=== PATIENT | male | born 1965 | race Caucasian/White ===

== ENCOUNTER → 2021-01-05 12:08 | Outpatient (BNVA) | payer MEDICAID, SELFPAY | PROVIDERS: PCP Nurse Practitioner Family; Visit Provider Nurse Practitioner Family | DX: J44.9 Chronic obstructive pulmonary disease, unspecified (principal); L03.90 Cellulitis, unspecified | CPT/HCPCS: 87070; 87077; 87184 ==

== ENCOUNTER → 2021-06-22 10:06 | Outpatient (BNVA) | payer MEDICAID, SELFPAY | PROVIDERS: PCP Nurse Practitioner Family; Visit Provider Nurse Practitioner Family | DX: Z98.890 Other specified postprocedural states (principal); Z79.899 Other long term (current) drug therapy; R53.83 Other fatigue; J44.9 Chronic obstructive pulmonary disease, unspecified; Z12.5 Encounter for screening for malignant neoplasm of prostate; E55.9 Vitamin D deficiency, unspecified; R06.02 Shortness of breath; S82.832S Other fracture of upper and lower end of left fibula, sequela; X58.XXXS Exposure to other specified factors, sequela | CPT/HCPCS: 71046; 73610 ==

== ENCOUNTER → 2021-08-14 00:01 | Outpatient (BNVA) | payer MEDICAID, SELFPAY | PROVIDERS: PCP Nurse Practitioner Family; Referring Provider Nurse Practitioner Family; Visit Provider Podiatrist Foot & Ankle Surgery | DX: M25.579 Pain in unspecified ankle and joints of unspecified foot (principal); Z20.822 Contact with and (suspected) exposure to COVID-19 | CPT/HCPCS: 87635 ==

== ENCOUNTER 2021-08-17 05:54 | Day surgery (SDC) | payer MEDICAID, SELFPAY ==
[2021-08-16 12:26] VITALS: BMI 29.5
--- NOTE | 2021-08-17 | SCC_ITS ---
Procedure Done: Hardware removal and resection of nonunion with open reduction internal fixation left medial malleolus 3 seconds of fluoroscopic guidance, for a cumulative dose of 0.1 mGy, was provided to Dr. Lima by the radiology department. C-arm images of the LEFT ankle were saved for the patient's permanent record. [facility] CENTERStormy
[2021-08-17 06:20] VITALS: BP 126/79; PULSE 70; RESP 18; TEMP 37.1; O2SAT 97
[2021-08-17] MEDS: sodium chloride 0.9% 1,000 ML 30 ML IV (06:30)
--- NOTE | 2021-08-17 06:39 | W.PM.OPSUD ---
Surgery/Procedure H&P Update DATE OF PROCEDURE: August 17, 2021 DATE H&P PERFORMED: 08/14/21 H&P UPDATE INFORMATION: I have reviewed H&P completed within last 30 days, I have examined patient prior to procedure, No changes to prior documentation and H&P is in [facility] [place] EMR on date indicated PREOP DIAGNOSIS: Painful hardware and nonunion left ankle PLANNED PROCEDURE: Operation Date: 08/17/21 07:00 Proposed Procedures p Hardware Removal [id number] T84.84XA(Left) - Darrell Lima DPM s ORIF Ankle(Left) - Darrell Lima DPM
--- NOTE | 2021-08-17 06:54 | PC.NURSE ---
nerve block done left lower leg by Dr. Rosen
--- NOTE | 2021-08-17 06:55 | ANES.PREANE2 ---
Pre-Anesthetic Assessment Pre-Anesthetic Assessment: Height/Weight: Height 1.88 m Weight 104.326 kg Temp Pulse Resp BP Pulse Ox 98.7 F 70 18 126/79 97 08/17/21 06:20 08/17/21 06:20 08/17/21 06:20 08/17/21 06:20 08/17/21 06:20 Preop Diagnosis: Painful hardware and nonunion left ankle Proposed Procedure: Operation Date: 08/17/21 07:00 Proposed Procedures p Hardware Removal [id number] T84.84XA(Left) - Darrell Lima DPM s ORIF Ankle(Left) - Darrell Lima DPM Familial anesthetic complications: none Was Beta Tameka taken within 24 hours: N/A Was Clonidine taken within 24 hours: N/A Last intake: Intake Last Liquid Date 08/16/21 Last Liquid Time 18:00 Last Solid Date 08/16/21 Last Solid Time 18:00 Social: Social History: No alcohol and No tobacco Exam: Pre-Anes Outpt Exam: alert, oriented x 3, clear to auscultation bilaterally and regular rate & rhythm Airway: Cervical ROM: WNL MP: 2 Dentition: Other (multiple missing, only 3 teeth) Pulmonary: Pulmonary: COPD CV/HEM: CV/HEM: HTN Anesthetic Plan: ASA status: 2 Anesthesia: General and Regional (specify below) Risk of > 500 ml blood loss (7ml/kg in children): No PFSH Anesthesia PFSH: Medical History COPD (chronic obstructive pulmonary disease) Crushing injury of ankle 1997 - logging accident Fatigue Hypertension screen Medication management Prostate cancer screening Vitamin D deficiency Surgical History History of ankle surgery Left ankle crush injury 1997 Plates and screws - bilateral Social History Smoking and tobacco status: former smoker Second hand smoke exposure: No Smoking risk assessment/counseling performed?: No Alcohol intake: former Desire information about alcohol rehabilitation?: No Counseling given: No Data Anesthesia Cardiac Studies: No Data to Display
--- NOTE | 2021-08-17 06:56 | ANES.PROC ---
Anesthesia Procedures Procedure/Date: 08/17/21 Nerve Block ^: Nerve Block 1: Main Anesthesia: general anesthesia Time Out Performed: Yes Consent: requested by attending/covering physician, from patient, risks and benefits reviewed and patient agrees to proceed Nerve block location: popliteal (L) Anesthesia monitors applied: pulse oximetry, EKG, BP cuff and oxygen Nerve block position: supine Anesthetic Used: ropivicaine 0.5% and with decadron (4 mg) Amount of anesthesia used (mL): 30 Ultrasound used to: recognize landmarks Nerve Stimulator Used?: No Interscalene/Femoral BLK: 4 stimuplex 21 g needle used for position and inplane approach, visualize local anesthetic spread and no vascular puncture identified Injection: neg aspiration of heme Patient Tolerated Procedure: well and no complications Complications: none
--- NOTE | 2021-08-17 08:00 | XR_ITS ---
WS: [id number] XR ankle LT min 3V* [id number] REASON FOR EXAM: Post op FINDINGS: Oblique distal most left medial malleolar fracture with long screw fixation. There are findings of he aling however the fracture lines are still identifiable. Previous distal right fibular fracture post hardware removal. Fracture site is healed. There may be f usion of the tibiofibular syndesmosis. There is narrowing of the lateral tibiotalar talar joint with significant subchondral sclerosis and c ystic change in the subarticular tibia. No significant interval change compared to 06/22/2021. XR/XR ankle LT min 3V* [id number] IMPRESSION: Stable examination compared to 06/22/2021. Old healed left fibular fracture. More recent left medial malleolar fracture with fixation. 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
[2021-08-17 08:21] VITALS: BP 97/72; PULSE 67; RESP 18; TEMP 36.1; O2SAT 94
--- NOTE | 2021-08-17 08:22 | P.OP_ITS ---
Operative Report Date of procedure: August 17, 2021 Pre-op Diagnosis: Painful hardware and nonunion left ankle Post-op diagnosis: same Post-op Findings: Nonunion left medial malleolus. Procedure Done: Hardware removal and resection of nonunion with open reduction internal fixation left medial malleolus Implants: 4.0 mm partially-threaded screw by 70 mm in length x2 with washers. Also used Estelle bio 4 1 cc Specimens removed/disposition: Screw x2 removed from medial malleolus Pathology: none sent Surgeon: Darrell Lima D.P.M. Control Panel Builder: Naima Brunner Anesthesia: MAC Estimated blood loss: 10 Tourniquet time: 57 IV fluids: 0 Urine output: 0 Complications: none Findings: Nonunion Condition: stable Disposition: PACU Brief History: Patient sustained a ankle fracture in 2008 with ORIF followed by revisional surgery in 2009 developed a painful nonunion with hardware and nonhealed fracture. Has had pain that is persistent with weightbearing and activity. Requesting revisional surgery. Risks include pain, bleeding, numbness, infection, hardware failure, delayed union, nonunion, malunion and need for further surgical intervention. Procedure: Under mild sedation the patient was brought to the operating room and remained on the gurney in supine position. A timeout was performed. Anesthesia was then administered by the anesthesia service. Popliteal block also performed per anesthesia service preoperatively. Saphenous nerve block performed by myself utilizing 0.5% Marcaine plain. Well-padded pneumatic tourniquet applied high calf to the left lower extremity. Left lower extremity was then scrubbed, prepped and draped utilizing normal aseptic technique. It was wrapped with an Esmarch bandage and the tourniquet inflated to 250 mmHg. Attention was directed to the medial ankle where previous cicatrix was identified. Over the previous cicatrix a 15 blade was utilized to perform a linear longitudinal incision through skin with blunt and sharp dissection carried down through subcutaneous tissue with care taken to retract and preserve neurovascular and tendinous structures. All bleeders were ligated and cauterized as necessary. Linear periosteal incision was made and hardware was identified this was removed 2 screws in total and passed from operative field. Fracture line was identified of the medial malleolus and was freshened up and opened up with a osteotome, all fibrous tissue was excised. Saline flush was performed. Subchondral drilling performed followed by packing 1 cc of Estelle bio 4 with osteogenic and conductive properties. Next utilizing standard AO technique [place] 4.0 mm headed partially-threaded screws with washers 70 mm in length were inserted across the fracture site with excellent bony apposition and compression noted with ankle mortise congruent without violating the ankle mortise confirmed on 3 views intraoperative fluoroscopy. Incision was then flu shed with saline solution, temporary fixation was removed. Closed in a layered fashion with periosteum reapproximated with 2-0 Vicryl, subcutaneous tissue reapproximated with 3-0 Vicryl and skin with skin sonam. Incision was dressed with Adaptic, sterile 4 x 4, Kerlix and Brijesh wrap. Extra-large cam boot applied. Tourniquet was deflated and a prompt hyperemic response was noted to the distal digits of the left foot. Patient tolerated the procedure and anesthesia well and was transferred to the PACU with vital signs stable and vascular status intact. Following a period of postoperative monitoring he will be discharged home he is to utilize crutches to remain strict nonweightbearing for a minimum of 6 weeks. Failure to comply with weightbearing status can result in nonunion, failed hardware and need for further surgical intervention. Will send an order for crutches to be filled at [facility]. Strict nonweightbearing to the left lower extremity secondary to status post open reduction internal fixation left ankle fracture.
[2021-08-17 08:26] VITALS: BP 116/73; PULSE 55; RESP 16; O2SAT 95
[2021-08-17 08:31] VITALS: BP 114/76; PULSE 55; RESP 16; O2SAT 99
--- NOTE | 2021-08-17 08:49 | ANE.PACU2 ---
Inpatient post-anesthesia follow up: Airway intact: Yes Vital signs: Temperature 97 F Pulse Rate 55 Respiratory Rate 16 Blood Pressure 114/76 Pulse Oximetry 99 Oxygen Delivery Me thod Room Air Oxygen Flow Rate Fraction of Inspir ed Oxygen Hydration adequate: Yes Nausea and vomiting: No Pain level: 1 Mental status: Baseline
[2021-08-17 08:52] VITALS: BP 124/85; PULSE 52; RESP 18; TEMP 36.6; O2SAT 98
[2021-08-17 09:24] VITALS: BP 106/85; PULSE 50; RESP 18; O2SAT 99
--- NOTE | 2021-08-17 13:14 | ANE.PACU2 ---
Inpatient post-anesthesia follow up: Airway intact: Yes Vital signs: Temperature 98 F Pulse Rate 50 Respiratory Rate 18 Blood Pressure 106/85 Pulse Oximetry 99 Oxygen Delivery Me thod Room Air Oxygen Flow Rate Fraction of Inspir ed Oxygen Hydration adequate: Yes Nausea and vomiting: No Pain level: 2 Mental status: Baseline
== END 2021-08-17 09:29 | disposition home or self-care (01) ==
PROVIDERS: PCP Nurse Practitioner Family; Visit Provider Podiatrist Foot & Ankle Surgery
PROC: (CPT 20680; principal; 2021-08-17 07:00)
PROC: (CPT 20680; 2021-08-17 07:00)
DX: S82.52XD Displaced fracture of medial malleolus of left tibia, subsequent encounter for closed fracture with routine healing (principal); X58.XXXD Exposure to other specified factors, subsequent encounter; T84.84XA Pain due to internal orthopedic prosthetic devices, implants and grafts, initial encounter; J44.9 Chronic obstructive pulmonary disease, unspecified; I10 Essential (primary) hypertension; Z87.891 Personal history of nicotine dependence
CPT/HCPCS: 20680; 27766; 64450; 73610; 76000; 76942; C1713; J0690; J1100; J2405; J2704; J2795; J3010; J3490; J7030

== ENCOUNTER → 2021-08-31 12:50 | Outpatient (BNVA) | payer MEDICAID, SELFPAY | PROVIDERS: PCP Nurse Practitioner Family; Visit Provider Podiatrist Foot & Ankle Surgery | DX: Z98.890 Other specified postprocedural states (principal) | CPT/HCPCS: 73610 ==

== ENCOUNTER → 2021-09-13 14:53 | Outpatient (BNVA) | payer MEDICAID, SELFPAY | PROVIDERS: PCP Nurse Practitioner Family; Visit Provider Podiatrist Foot & Ankle Surgery | DX: S82.55XA Nondisplaced fracture of medial malleolus of left tibia, initial encounter for closed fracture (principal); X58.XXXA Exposure to other specified factors, initial encounter | CPT/HCPCS: 73610 ==

== ENCOUNTER → 2021-10-01 08:13 | Outpatient (BNVA) | payer MEDICAID, SELFPAY | PROVIDERS: PCP Nurse Practitioner Family; Visit Provider Podiatrist Foot & Ankle Surgery | DX: S82.55XD Nondisplaced fracture of medial malleolus of left tibia, subsequent encounter for closed fracture with routine healing (principal); M25.572 Pain in left ankle and joints of left foot; X58.XXXD Exposure to other specified factors, subsequent encounter; Z98.890 Other specified postprocedural states | CPT/HCPCS: 73610 ==

== ENCOUNTER → 2021-10-16 09:31 | Outpatient (BNVA) | payer MEDICAID, SELFPAY | PROVIDERS: PCP Nurse Practitioner Family; Visit Provider Podiatrist Foot & Ankle Surgery | DX: Z47.89 Encounter for other orthopedic aftercare (principal); T84.84XA Pain due to internal orthopedic prosthetic devices, implants and grafts, initial encounter; X58.XXXA Exposure to other specified factors, initial encounter; S82.55XD Nondisplaced fracture of medial malleolus of left tibia, subsequent encounter for closed fracture with routine healing | CPT/HCPCS: 73610 ==

== ENCOUNTER 2021-10-29 06:25 | Outpatient (CLI) | payer MEDICAID, SELFPAY ==
--- NOTE | 2021-10-29 06:30 | USCV_ITS ---
Ahmet Newsome Age: 56 Gender: M : 1965 Exam Date: 10/29/2021 06:44 Ordering Phys: Talha Corley MD Technologist: PHU [place] [facility] [place]: [place]ysp[place] HISTORY: Dyspnea PROCEDURES: Venous duplex imaging was performed in bilateral lower extremities. The following venous structures were evaluated: common femoral vein, profunda vein, proximal portion of the greater saphenous vein, superficial femoral vein, and the popliteal vein. In addition, the posterior tibial and peroneal trunk were evaluated. FINDINGS: Normal 2-D Doppler and augmentation and compressibility throughout the lower extremity venous structures. Additional imaging through the proximal calf veins also reveals no thrombus. Limited evaluation of the greater saphenous vein is patent with no thrombus.. CONCLUSIONS No evidence of right lower extremity DVT. No evidence of left lower extremity DVT. Giovanni Banegas MD (Electronically Signed) Final Date: 29 October 2021 17:15 S
== END 2021-10-29 06:26 | disposition home or self-care (01) ==
LOC: RAD 06:26
PROVIDERS: PCP Nurse Practitioner Family; Visit Provider Internal Medicine Pulmonary Disease
DX: R06.00 Dyspnea, unspecified (principal); J44.9 Chronic obstructive pulmonary disease, unspecified
CPT/HCPCS: 87635; 93970

== ENCOUNTER → 2021-11-19 08:19 | Outpatient (BNVA) | payer MEDICAID, SELFPAY | PROVIDERS: PCP Nurse Practitioner Family; Visit Provider Podiatrist Foot & Ankle Surgery | DX: M19.072 Primary osteoarthritis, left ankle and foot (principal); M25.372 Other instability, left ankle; M25.572 Pain in left ankle and joints of left foot; G89.29 Other chronic pain; Z87.891 Personal history of nicotine dependence; Z98.890 Other specified postprocedural states | CPT/HCPCS: 73610; 99213; 99214 ==

== ENCOUNTER 2021-12-27 14:58 | Outpatient (CLI) | payer MEDICAID, SELFPAY ==
--- NOTE | 2021-12-27 15:04 | CT_ITS ---
WS: [id number] CT CERVICAL SPINE TECHNIQUE: Noncontrast CT of the cervical spine with coronal and sagittal reformatted images. CLINICAL INFORMATION: CERVICAL DDD COMPARISON: None. DLP: 269.[address] scans at [facility] use at least one of these dose optimization techniques: automated e xposure control; mA and/or kV adjustment per patient size (includes targeted exams where dose is matc hed to clinical indication); or iterative reconstruction. FINDINGS: Straightening of the normal cervical lordosis. Moderate spondylitic changes. Disc space narrowing wor se at C4-C5 C5-C6 and C6-C7 with disc osteophytic ridging. Normal C1-C2 articulation. C2-C3: Moderate LEFT facet arthropathy. Mild LEFT foraminal narrowing. Spinal canal is patent. C3-C4: Disc osteophyte complex with endplate ridging. Advanced LEFT facet arthropathy. Severe LEFT ameya ny foraminal narrowing. Mild RIGHT bony foraminal narrowing. Mild central canal stenosis. C4-C5: Disc osteophyte complex with endplate ridging. Moderate facet arthropathy. Mild RIGHT greater than LEFT bony foraminal narrowing. Mild central canal stenosis. Tiny shallow central protrusion. C5-C6: Disc osteophyte complex with endplate ridging. Moderate LEFT and mild RIGHT bony foraminal alena rowing. Mild/moderate facet arthropathy. Mild central canal stenosis. C6-C7: Disc osteophyte complex endplate ridging. Mild facet arthropathy. Mild to moderate bilateral b karla foraminal narrowing. Mild to moderate central canal stenosis. C7-T1: Spinal canal and foramen are patent. Lung apices are well aerated. Visualized posterior nasopharynx: Normal. Prevertebral soft tissues: Normal. CT/CT cervical spin wo con* [id number] IMPRESSION: 1. Straightening of the normal cervical lordosis. Moderate spondylitic changes . 2. Mild central canal stenosis C3-C4, C4-C5, and C5-C6. 3. Mild to moderate central canal stenosis C6-C7 4. Moderate to severe bony foraminal narrowing LEFT C3-C4 with advanced LEFT f acet arthropathy at this level. 5. Moderate LEFT C5-C6 and mild to moderate bilateral C6-C7 bony foraminal alena rowing. 6. Advanced facet arthropathy LEFT C3-C4. 7. Moderate facet arthropathy LEFT C4-C5
== END 2021-12-27 14:59 | disposition home or self-care (01) ==
LOC: RAD 14:58
PROVIDERS: PCP Nurse Practitioner Family; Visit Provider General Practice
DX: M50.30 Other cervical disc degeneration, unspecified cervical region (principal); M48.02 Spinal stenosis, cervical region; M47.892 Other spondylosis, cervical region
CPT/HCPCS: 72125

== ENCOUNTER → 2022-01-28 08:29 | Outpatient (BNVA) | payer MEDICAID, SELFPAY | PROVIDERS: PCP Nurse Practitioner Family; Visit Provider Podiatrist Foot & Ankle Surgery | DX: M25.572 Pain in left ankle and joints of left foot (principal); M19.072 Primary osteoarthritis, left ankle and foot; M25.372 Other instability, left ankle | CPT/HCPCS: 73610; 99214 ==

== ENCOUNTER → 2022-07-08 09:49 | Outpatient (BNVA) | payer MEDICAID, SELFPAY | PROVIDERS: PCP Nurse Practitioner Family; Visit Provider Podiatrist Foot & Ankle Surgery | DX: S97.0 Crushing injury of ankle (principal); L85.1 Acquired keratosis [keratoderma] palmaris et plantaris; X58.XXXS Exposure to other specified factors, sequela; M19.072 Primary osteoarthritis, left ankle and foot; M25.372 Other instability, left ankle | CPT/HCPCS: 17110 ==

== ENCOUNTER → 2022-08-12 08:57 | Outpatient (BNVA) | payer MEDICAID, SELFPAY | PROVIDERS: PCP Nurse Practitioner Family; Visit Provider Podiatrist Foot & Ankle Surgery | DX: L85.1 Acquired keratosis [keratoderma] palmaris et plantaris (principal); S97.0 Crushing injury of ankle; X58.XXXS Exposure to other specified factors, sequela; M19.072 Primary osteoarthritis, left ankle and foot; M25.372 Other instability, left ankle | CPT/HCPCS: 17110; 99213 ==

== ENCOUNTER → 2022-09-18 08:34 | Outpatient (BNVA) | payer MEDICAID, SELFPAY | PROVIDERS: PCP Nurse Practitioner Family; Visit Provider Podiatrist Foot & Ankle Surgery | DX: L85.1 Acquired keratosis [keratoderma] palmaris et plantaris (principal); L84 Corns and callosities; M19.072 Primary osteoarthritis, left ankle and foot; M25.372 Other instability, left ankle; X58.XXXS Exposure to other specified factors, sequela; S97.0 Crushing injury of ankle | CPT/HCPCS: 17110 ==

== ENCOUNTER → 2022-10-30 08:32 | Outpatient (BNVA) | payer MEDICAID, SELFPAY | PROVIDERS: PCP Nurse Practitioner Family; Visit Provider Podiatrist Foot & Ankle Surgery | DX: L85.1 Acquired keratosis [keratoderma] palmaris et plantaris (principal) | CPT/HCPCS: 17110 ==

== ENCOUNTER → 2022-11-27 07:57 | Outpatient (BNVA) | payer MEDICAID, SELFPAY | PROVIDERS: PCP Nurse Practitioner Family; Visit Provider Podiatrist Foot & Ankle Surgery | DX: L85.1 Acquired keratosis [keratoderma] palmaris et plantaris (principal); L84 Corns and callosities | CPT/HCPCS: 17110 ==